=== PATIENT | female | born 1955 | race Two or more races ===

== ENCOUNTER 2017-10-15 20:57 | Emergency (ER) | payer MEDICARE, MEDICAID ==
[~2017-10-15] VITALS: Ht 165.1 cm; Wt 128.0 kg
[2017-10-16] MEDS: NAPROXEN 500MG TABLET PO ONE (00:21)
[2017-10-16 00:46] VITALS: BP 137/80
== END 2017-10-16 00:47 | disposition home or self-care (01) ==
LOC: ER 22:17
DX: S00.511A Abrasion of lip, initial encounter (principal); M79.662 Pain in left lower leg; Z90.49 Acquired absence of other specified parts of digestive tract; Z96.653 Presence of artificial knee joint, bilateral; W01.0XXA Fall on same level from slipping, tripping and stumbling without subsequent striking against object, initial encounter; Y93.89 Activity, other specified; Y92.89 Other specified places as the place of occurrence of the external cause; Y99.8 Other external cause status; G37.0 Diffuse sclerosis of central nervous system
CPT/HCPCS: 70450; 71045; 72170; 73562; 73590; 99284